=== PATIENT | female | born 1940 | race Caucasian/White ===

== ENCOUNTER 2017-09-02 09:43 | Outpatient (CLI) | payer MEDICARE, OTHER ==
--- NOTE | 2017-09-02 13:12 | Diagnostic Imaging Report ---
[facility] [id number] [facility].[address] [id number] Report Submission Date: Sep 02, 2017 10:32:09 AM GRISTMILL OPERATOR Patient Study Name: MELISSA ALBARRAN Date: Sep 02, 2017 10:04:43 AM GRISTMILL OPERATOR MRN: [id number] Modality Type: CR Gender: F Description: SHOULDER : 38 Institution: [facility] Physician: WILD CARPENTER Examination: Plain film shoulder History: Chronic shoulder discomfort. Comparison exams: None provided Findings: 2 views of the shoulder demonstrates osteopenia. No evidence for fracture or dislocation. Acromioclavicular joint degenerative changes. Impression: Osteopenia and degenerative changes. No evidence for fracture. If concern exist for soft tissue abnormality, consider obtaining MRI. Electronically signed on Sep 02, 2017 10:32:09 AM GRISTMILL OPERATOR by: Froy CHAU
== END 2017-09-02 10:00 ==
LOC: RAD 09:43
PROVIDERS: ATTEND Family Medicine
DX: M25.512 Pain in left shoulder (principal); G89.29 Other chronic pain
CPT/HCPCS: 73030